=== PATIENT | female | born 1975 | race Caucasian/White ===

== ENCOUNTER 2019-12-25 20:37 | Emergency (ER) | payer BC ==
--- NOTE | 2019-12-25 20:56 | ER Document Report ---
ED Medical Screen (RME) - General Chief Complaint: Vaginal Bleeding Stated Complaint: VAGINAL BLEEDING/CLOTS/WEAKNESS Time Seen by Provider: 12/25/19 20:49 Primary Care Provider: VALENTE BENNETT NP [Primary Care Provider] - Follow up as needed Mode of Arrival: Ambulatory Information source: Patient Notes: HPI; 44-year-old female presents to the emergency room complaining of worsening bleeding and passing clots that is been going on since yesterday. States she started her menstrual cycle on December 21. Has been diagnosed with fibroids states this is the heaviest bleeding she is ever had. Denies any pain. No use of control. PE: Alert and oriented x3. Lungs: Clear to auscultation without rales, rhonchi, wheezes. Heart: Regular rate and rhythm without murmurs, rubs, gallops. I have greeted and performed a rapid initial assessment of this patient. A comprehensive ED assessment and evaluation of the patient, analysis of test results and completion of the medical decision making process will be conducted by additional ED providers. I have specifically instructed the patient or family members with the patient to immediately return to any nursing staff should anything change in the patient's condition or with their chief complaint. TRAVEL OUTSIDE OF THE [place] IN LAST 30 DAYS: No - Related Data Allergies/Adverse Reactions: No Known Allergies Allergy (Unverified 12/25/19 20:54) Past Medical History - Social History Chew tobacco use (# tins/day): No Frequency of alcohol use: Occasional Physical Exam - Vital signs Vitals: Temp Pulse Resp BP Pulse Ox 98.9 F 91 16 136/81 H 100 12/25/19 20:41 12/25/19 20:41 12/25/19 20:41 12/25/19 20:41 12/25/19 20:41 Course - Vital Signs Vital signs: Temp Pulse Resp BP Pulse Ox 98.7 F 91 16 136/81 H 100 12/25/19 20:52 12/25/19 20:41 12/25/19 20:41 12/25/19 20:41 12/25/19 20:41 Doctor's Discharge - Discharge Referrals: VALENTE BENNETT NP [Primary Care Provider] - Follow up as needed
[2019-12-25 21:11] LABS: ABSOLUTE EOSINOPHILS # (AUTO) 0.2 10^3/uL (0.0-0.6); ABSOLUTE LYMPHOCYTES (AUTO) 1.4 10^3/uL (0.5-4.7); ABSOLUTE MONOCYTES (AUTO) 0.5 10^3/uL (0.1-1.4); BASOPHILS % (AUTO) 0.3 % (0-2); EOSINOPHILS % (AUTO) 1.9 % (0-6); HEMATOCRIT 33.3 % (36.0-47.0); HEMOGLOBIN 11.4 g/dL (12.0-15.5); LYMPHOCYTES % (AUTO) 17.7 % (13-45); MEAN CORPUSCULAR HEMOGLOBIN 29.3 pg (27.0-33.4); MEAN CORPUSCULAR HGB CONC 34.1 g/dL (32.0-36.0); MEAN CORPUSCULAR VOLUME 86 fl (80-97); MONOCYTES % (AUTO) 6.1 % (3-13); PLATELET COUNT 253 10^3/uL (150-450); RED BLOOD COUNT 3.88 10^6/uL (3.72-5.28); RED CELL DISTRIBUTION WIDTH 12.7 % (11.5-14.0); TOTAL CELLS COUNTED % (AUTO) 100 %; WHITE BLOOD COUNT 8.1 10^3/uL (4.0-10.5)
[2019-12-25 21:24] LABS: APPEARANCE,URINE CLEAR; BILIRUBIN,URINE NEGATIVE (NEGATIVE); COLOR,URINE STRAW; GLUCOSE, URINE NEGATIVE (NEGATIVE); KETONES,URINE NEGATIVE (NEGATIVE); LEUKOCYTE ESTERASE,URINE NEGATIVE (NEGATIVE); NITRITE,URINE NEGATIVE (NEGATIVE); PROTEIN,URINE NEGATIVE (NEGATIVE); URINE SPECIFIC GRAVITY 1.005; UROBILINOGEN,URINE NEGATIVE mg/dL (<2.0)
[2019-12-25 21:30] LABS: ALBUMIN 4.1 g/dL (3.5-5.0); ALKALINE PHOSPHATASE 43 U/L (38-126); ANION GAP 7 (5-19); ASPARTATE AMINO TRANSFERASE 21 U/L (14-36); BILIRUBIN,DIRECT 0.2 mg/dL (0.0-0.4); BILIRUBIN,TOTAL 0.4 mg/dL (0.2-1.3); BLOOD UREA NITROGEN 8 mg/dL (7-20); CALCIUM 9.5 mg/dL (8.4-10.2); CARBON DIOXIDE 30 mmol/L (22-30); CHLORIDE 100 mmol/L (98-107); GLUCOSE 123 mg/dL (75-110)
--- NOTE | 2019-12-25 22:48 | RADIOLOGY REPORT (SQ) ---
US PELVIS HISTORY: Pelvic pain. COMPARISON: None. TECHNIQUE: Grayscale, color Doppler, and spectral Doppler ultrasound images of the pelvis were obtained. FINDINGS: The uterus is anteverted and measures 12.7 x 6.9 x 8.4 cm. There are intrauterine fibroids, including a 5.4 x 5.3 cm fibroid in the right segment and a 3.6 x 3.9 cm fundal fibroid. Endometrium is 6 mm in thickness. Cervix is 3.4 cm in length. Both ovaries are normal in size and contain normal follicles, with the right ovary measuring 3.9 x 2.3 cm and the left ovary measuring 4.2 x 2.9 cm. There is a 2.8 cm simple cyst in the left ovary. Normal color Doppler blood flow is seen in both ovaries. IMPRESSION: 1. Fibroid uterus. 2. 2.8 cm simple left ovarian cyst. No follow-up imaging is recommended. Reference: Radiology 2010 Nov;256(3):946-00
--- NOTE | 2019-12-25 23:05 | ER Document Report ---
ED General - General Chief Complaint: Vaginal Bleeding Stated Complaint: VAGINAL BLEEDING/CLOTS/WEAKNESS Time Seen by Provider: 12/25/19 20:49 Primary Care Provider: VALENTE BENNETT NP [NURSE PRACTITIONER] - Follow up as needed Mode of Arrival: Ambulatory TRAVEL OUTSIDE OF THE [place] IN LAST 30 DAYS: No - HPI Notes: Patient is a 44-year-old female who presents to the emergency department for evaluation of abnormal vaginal bleeding. She states that her menstrual cycles approximately 3 weeks, she had a normal period starting on December 21. She states that she started passing large clots and bleeding very heavily. For the first part of her menstruation, she was going through a super plus tampon every 2 hours. She states that since then her bleeding is slowed significantly. She is not having any pain. She is following with an GRAIN ROASTER from [facility]. She actually has an appointment and ultrasound scheduled. They also wanted a biopsy done. Patient is unsure as to when her mother went through menopause. She states that she notes her mother had significant fibroids and heavy uterine bleeding, did have a hysterectomy. Patient is also concerned that she may have broken off a Q-tip in her right ear. She states that this was a few days ago. She had a little bit of increased pain, but states that she looked down and the Q-tip did not have its cotton tipped and. She was unsure as to whether or not it was missing in the ear canal. - Related Data Allergies/Adverse Reactions: No Known Allergies Allergy (Unverified 12/25/19 20:54) Home Medications: Synthroid, Celexa Past Medical History - General Information source: Patient - Social History Smoking Status: Never Smoker Chew tobacco use (# tins/day): No Frequency of alcohol use: Occasional Family History: Malignancy Patient has homicidal ideation: No Endocrine Medical History: Reports: Hx Hypothyroidism Psychiatric Medical History: Reports: Hx Depression Traumatic Medical History: Reports: Hx Fractures Past Surgical History: Reports: Hx Orthopedic Surgery Review of Systems - Review of Systems Constitutional: No symptoms reported EENT: See HPI Cardiovascular: No symptoms reported Respiratory: No symptoms reported Gastrointestinal: No symptoms reported Genitourinary: No symptoms reported Female Genitourinary: See HPI Musculoskeletal: No symptoms reported Skin: No symptoms reported Neurological/Psychological: No symptoms reported Physical Exam - Vital signs Vitals: Temp Pulse Resp BP Pulse Ox 98.9 F 91 16 136/81 H 100 12/25/19 20:41 12/25/19 20:41 12/25/19 20:41 12/25/19 20:41 12/25/19 20:41 - Notes Notes: Vital signs reviewed, please refer to chart. Head is normocephalic, atraumatic. Pupils equal round, reactive to light. Right external auditory canal is free from any foreign body. There is mild erythema but no drainage or edema noted. TM is pearly martinez with good light reflex. Neck is supple without meningismus. Heart is regular rate and rhythm. Lungs are clear to auscultation bilaterally. Abdomen is soft, nontender, normoactive bowel sounds throughout. Extremities without cyanosis, clubbing. Posterior calves are nontender. Peripheral pulses are equal. Skin is warm and dry. Patient is awake, alert, neurological exam is nonfocal. Course - Re-evaluation Re-evalutation: 12/25/19 23:03 Patient presents to the emergency department for evaluation of abnormal uterine bleeding. She is in fact not bleeding at this time. She already has an GRAIN ROASTER. Her laboratory investigations revealed a mild anemia. Otherwise are largely unremarkable. Transvaginal ultrasound shows an ovarian cyst, uterine fibroids. I do believe outpatient follow-up with her GRAIN ROASTER is appropriate at this time. Beyond that, no foreign body was identified in her ear canal. She is told to keep her appointment with OB, return to the ED with worsening or new concerning symptoms of any sort. - Vital Signs Vital signs: Temp Pulse Resp BP Pulse Ox 98.7 F 91 16 136/81 H 100 12/25/19 20:52 12/25/19 20:41 12/25/19 20:41 12/25/19 20:41 12/25/19 20:41 - Laboratory Result Diagrams: 12/25/19 20:58 12/25/19 20:58 Laboratory results interpreted by me: 12/25/19 12/25/19 12/25/19 20:58 20:58 20:58 Hgb 11.4 L Hct 33.3 L Glucose 123 H Urine Blood MODERATE H - Diagnostic Test Radiology reviewed: Reports reviewed Radiology results interpreted by me: 12/25/19 23:03 Transvaginal US 12/25/19 20:54 IMPRESSION: 1. Fibroid uterus. 2. 2.8 cm simple left ovarian cyst. No follow-up imaging is recommended. Reference: Radiology 2010 Nov;256(3):748-59 Discharge - Discharge Clinical Impression: Abnormal uterine bleeding, Ovarian cyst, left Fibroid, uterine Qualifiers: Uterine leiomyoma location: unspecified location Qualified Code(s): D25.9 - Leiomyoma of uterus, unspecified Condition: Stable Disposition: HOME, SELF-CARE Instructions: Dysfunctional Uterine Bleeding ([facility]) Additional Instructions: You are mildly anemic today, and a small ovarian cyst was noted. Otherwise you do have fibroids in your uterus. Please follow-up with your GRAIN ROASTER. If you develop increased pain, bleeding worsen 1 pad an hour for more than 6 hours, fevers, or any other new or concerning symptoms, please return immediately to the emergency department for evaluation. Referrals: VALENTE BENNETT NP [NURSE PRACTITIONER] - Follow up as needed
[2019-12-25 23:35] VITALS: BP 119/71
== END 2019-12-25 23:36 | disposition home or self-care (01) ==
LOC: ER 20:37
DX: D25.9 Leiomyoma of uterus, unspecified (principal); N93.9 Abnormal uterine and vaginal bleeding, unspecified; D64.9 Anemia, unspecified; N83.292 Other ovarian cyst, left side; L53.9 Erythematous condition, unspecified; E03.9 Hypothyroidism, unspecified; F32.9 Major depressive disorder, single episode, unspecified; Z79.899 Other long term (current) drug therapy
CPT/HCPCS: 36415; 76830; 80053; 81001; 84703; 85025; 93976; 99284